=== PATIENT | male | born 1950 | race Caucasian/White ===

== ENCOUNTER 2020-05-27 09:06 | Outpatient (CLI) | payer MEDICARE, SELFPAY ==
--- NOTE | ~2020-05-27 | MR_ITS ---
EXAMINATION: MR shoulder RT wo con DATE: 05/27/2020 10:06 INDICATION: Dysfunction of right rotator cuff. TECHNIQUE: Magnetic resonance imaging (MRI) of the right shoulder was performed without intravenous c ontrast. Sequences included axial PD-weighted FS FSE, coronal oblique PD-weighted FS FSE and T2-weigh west FS FSE, and sagittal oblique T2-weighted FS FSE and T1-weighted FSE. COMPARISON: Right shoulder radiographs 03/29/2010 FINDINGS: Coracoacromial arch: The acromion undersurface is curved in morphology (type II). There is severe acromioclavicular joint osteoarthritis including inferiorly directed osteophytes. There is mild subacromial/subdeltoid bursit is. Rotator cuff: There is severe supraspinatus and infraspinatus tendinopathy. There is an articular sided tear of the junction of supraspinatus and infraspinatus tendons measuring 5 mm anterior to posterior by 1.6 cm p roximal to distal by up to 80% tendon thickness. Teres minor tendon is normal. There is moderate scap ularis tendinopathy. There is an interstitial tear of superior subscapularis tendon. There is no asym metric fatty atrophy of the rotator cuff muscle bellies. Biceps tendon and glenoid labrum: Biceps tendon is in bicipital groove. There is a partial tear of proximal biceps tendon. Fluid: There is a small glenohumeral joint effusion. Bones/cartilage: There is full-thickness cartilage loss of glenoid superiorly. There is full-thickness cartilage loss of humeral head superiorly. IMPRESSION: 1. Severe rotator cuff tendinopathy with partial-thickness tears involving supraspinatus, infraspinat us, and subscapularis tendons. 2. Severe glenohumeral joint chondrosis. 3. Severe acromioclavicular joint osteoarthritis. 4. Partial tear of proximal biceps tendon. 5. Mild subacromial/subdeltoid bursitis. 6. Small glenohumeral joint effusion. Reviewed, dictated and finalized at location A. IMPRESSION: 1. Severe rotator cuff tendinopathy with partial-thickness tears involving supr aspinatus, infraspinatus, and subscapularis tendons. 2. Severe glenohumeral joint chondrosis. 3. Severe acromioclavicular joint osteoarthritis. 4. Partial tear of proximal biceps tendon. 5. Mild subacromial/subdeltoid bursitis. 6. Small glenohumeral joint effusion.
== END 2020-05-27 09:07 | disposition home or self-care (01) ==
DX: M19.011 Primary osteoarthritis, right shoulder (principal); M75.51 Bursitis of right shoulder; M25.411 Effusion, right shoulder
CPT/HCPCS: 73221

== ENCOUNTER 2024-04-29 00:48 | Day surgery (SDC) | payer MEDICARE, OTHER, SELFPAY ==
[2024-04-21 10:25] VITALS: BMI 27.2
--- OUTSIDE RECORDS SUMMARY | 2024-04-29 00:51 | XMS_ITS | Referral Summary ---
Author Organization [facility] Address [address] [place] [address] Care Team Providers Care Railway Equipment Operator Name Role Phone Prince Bailon MD Primary Care Provider [phone] Encounters Date Type Department Care Team Description 04/22/[address] [facility] [address] [place] [address] Medical Office Building [address] [place] [address] Mariel Grove NP 04/21/2024 Orders Only [facility] at the [address] [place] [phone] Prince Bailon MD Obstructive sleep apnea syndrome 03/24/2024 Orders Only [facility] [address] [place] [address] Mariel Grove NP 03/23/2024 10:40 AM DEBATE DIRECTOR Office Visit 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 (Primary Dx); Primary stress urinary incontinence; Prostate cancer (HCC) 03/22/2024 9:25 AM DEBATE DIRECTOR - 03/22/2024 11:59 PM DEBATE DIRECTOR Hospital Encounter [facility] [address] [place] [address] Left sided sciatica Discharge Disposition: Discharge to home or self care 03/16/2024 Orders Only [facility] [address] [place] [address] Mariel Grove NP Benign prostatic hyperplasia with urinary obstruction (Primary Dx) 03/16/2024 9:45 AM DEBATE DIRECTOR Office Visit [facility] at the [address] [phone] Prince Bailon MD Left sided sciatica (Primary Dx); Essential hypertension; Benign prostatic hyperplasia with urinary obstruction; Pure hypercholesterolemia ; Personal history of prostate cancer 02/27/2024 Nurse Triage [facility] at the [address] [phone] Prince Bailon MD 02/22/2024 3:45 PM DEBATE DIRECTOR Telemedicine [facility] [address] [phone] Arelis Garrett NP COVID-19 (Primary Dx) 02/22/2024 Nurse Triage [facility] at the [address] [phone] Prince Bailon MD 02/09/[address] [facility] [address] [facility] Medical Office Building [address] [place] [address] Cuco Philip MD Prostate cancer (HCC) (Primary Dx) from Last 3 Months Allergies Active Allergy Reactions Criticality Noted Date Comments Lisinopril Cough Low 03/17/2018 Medications multivitamin tablet tablet take 1 tablet by oral route every day with food 0 0 014 Active Additional Information Patient taking differently: 1 tablet oral Every morning, Indications: Vitamin Deficiency Prevention, Reported on 03/23/2024 cetirizine (ZyrTEC) 10 mg tabletIndicati ons:Perennial Allergic Rhinitis Take 1 tablet (10 mg total) by mouth every morning Active acetaminophen (TYLENOL) 500 mg tablet Take 1 tablet (500 mg total) by mouth every 6 (six) hours as needed for pain Active pantoprazole DR (PROTONIX) 40 mg EC tablet TAKE 1 TABLET(40 MG) BY MOUTH DAILY 90 tablet 1 023 Active atorvastatin (LIPITOR) 10 mg tablet TAKE 1 TABLET(10 MG) BY MOUTH DAILY FOR HIGH CHOLESTEROL 90 tablet 3 024 Active carvediloL (COREG) 12.5 mg tablet TAKE 1 TABLET(12.5 MG) BY MOUTH TWICE DAILY 180 tablet 3 024 Active clonazePAM (KlonoPIN) 0.5 mg tablet Take 1 tablet (0.5 mg total) by mouth 2 (two) times a day as needed for anxiety 60 tablet 5 024 Active cyclobenzaprin e (FLEXERIL) 5 mg tablet Take 1 tablet (5 mg total) by mouth 2 (two) times a day as needed for muscle spasms 30 tablet 024 Active amLODIPine (NORVASC) 5 mg tablet TAKE 1 TABLET(5 MG) BY MOUTH DAILY 90 tablet 3 024 Active valACYclovir (VALTREX) 1 gram tablet TAKE 1 TABLET(1000 MG) BY MOUTH THREE TIMES DAILY 15 tablet 2 025 Active losartan (COZAAR) 100 mg tablet TAKE 1 TABLET(100 MG) BY MOUTH DAILY 90 tablet 3 025 Active meloxicam (MOBIC) 15 mg tablet TAKE 1 TABLET(15 MG) BY MOUTH DAILY NEEDED FOR PAIN 90 tablet 1 025 Active trospium XR (SANCTURA XR) 60 mg capsule,extend ed release 24hr Take 1 capsule (60 mg total) by mouth daily 30 capsule 025 2025 Active temazepam (RESTORIL) 15 mg capsuleIndicat ions:Obstructi ve sleep apnea syndrome Take 1 capsule (15 mg total) by mouth nightly as needed for sleep 90 capsule 025 Active papaverine-phe ntolamine-alpr ostadil (TRIMIX) solution injectionIndic ations:Erectil e Dysfunction 0.15 mL by intracavernosal route as needed (Use as directed for sexual activity.) 5 mL 5 025 Active tadalafiL (CIALIS) 20 mg tablet Take 1 tablet (20 mg total) by mouth daily as needed for erectile dysfunction 10 tablet 11 021 2020 Discontinued temazepam (RESTORIL) 15 mg capsuleIndicat ions:Obstructi ve sleep apnea syndrome TAKE 1 CAPSULE BY MOUTH NIGHTLY NEEDED FOR SLEEP. 90 capsule 1 024 2024 Discontinued(R eorder) papaverine-phe ntolamine-alpr ostadil (TRIMIX) solution injectionIndic ations:Erectil e Dysfunction 0.15 mL by intracavernosal route as needed (Use as directed for sexual activity.) 5 mL 5 024 2024 Discontinued(R eorder) Active Problems Problem Noted Date Diagnosed Date Primary stress urinary incontinence 03/31/2023 Pleurisy 10/01/2022 Assessment & Plan (10/01/2022 12:42 PM CDT): Recurrent left lower chest wall/abdominal pain for the past 6-12 months. Evaluation included a chest x-ray, chest CT scan as well as a stress echo which were all normal. Coronary artery calcification seen on CT scan Assessment & Plan (10/15/2023 9:25 PM CDT): Managed with BP and lipid control. Assessment & Plan (04/08/2023 9:29 AM DEBATE DIRECTOR): Continue with aspirin and carvedilol. Assessment & Plan (10/01/2022 12:40 PM CDT): Continue with carvedilol. Assessment & Plan (05/23/2022 4:58 PM CDT): Incidental finding on chest CT scan. Managed with BP and lipid control. Pure hypercholesterolemia 05/23/2022 Assessment & Plan (03/16/2024 8:41 PM DEBATE DIRECTOR): Target LDL less than 100. Continue current diet and atorvastatin Assessment & Plan (10/15/2023 9:25 PM CDT): Target LDL less than 70. Continue current diet and atorvastatin. Check CMP and FLP. Assessment & Plan (08/09/2023 4:22 PM CDT): Target LDL less than 100. Continue current diet and atorvastatin. Assessment & Plan (04/08/2023 9:29 AM DEBATE DIRECTOR): Target LDL less than 70. Continue current diet and atorvastatin. Assessment & Plan (11/20/2022 10:23 AM CDT): Target LDL less than 100. Continue current diet and atorvastatin. Assessment & Plan (10/01/2022 12:40 PM CDT): Target LDL less than 70 due to calcification on CT scan of coronary arteries. Continue current diet and atorvastatin. Check CMP and FLP. Assessment & Plan (05/23/2022 4:58 PM CDT): Target LDL less than 70. New diagnosis since coronary calcifications on CT scan. Now on atorvastatin. Gastroesophageal reflux disease 05/23/2022 Assessment & Plan (10/01/2022 12:39 PM CDT): Continue pantoprazole. Dysfunction of right rotator cuff 12/14/2020 Nontraumatic incomplete tear of right rotator cu ff 12/14/2020 Personal history of prostate cancer 11/30/2019 Overview (11/30/2019): Added automatically from request for surgery [id number] Assessment & Plan (03/16/2024 8:41 PM DEBATE DIRECTOR): Prostatectomy in 2019. Followed by serial PSAs. Assessment & Plan (04/08/2023 9:30 AM DEBATE DIRECTOR): Prostatectomy in 2019. Followed by serial PSAs. Assessment & Plan (10/01/2022 12:40 PM CDT): Status post surgical resection. Continue follow-up with urology. Assessment & Plan (04/03/2022 5:51 PM DEBATE DIRECTOR): Status post prostatectomy in 2019 Assessment & Plan (09/18/2021 1:45 PM CDT): Followed by urology. Chronic insomnia 03/10/2017 Assessment & Plan (10/01/2022 12:40 PM CDT): On chronic temazepam. Keratosis, senilis 06/25/2016 Male erectile disorder 09/05/2015 Overview (05/30/2016): Impotence Lentigines 06/20/2015 Basal cell carcinoma (BCC) of back 10/19/2014 Anxiety 09/16/2013 Primary insomnia 09/16/2013 Assessment & Plan (10/15/2023 9:26 PM CDT): Managed with chronic temazepam. Assessment & Plan (08/09/2023 4:22 PM CDT): Continue with temazepam. Assessment & Plan (04/08/2023 9:31 AM DEBATE DIRECTOR): Treated with temazepam for years. Assessment & Plan (04/03/2022 5:51 PM DEBATE DIRECTOR): Has been on chronic temazepam for several years. Assessment & Plan (09/18/2021 1:45 PM CDT): On chronic temazepam. Atopic rhinitis 08/09/2013 Overview (05/30/2016): Allergic rhinitis Left ventricular hypertrophy 08/09/2013 Overview (05/30/2016): LVH - Left ventricular hypertrophy Essential hypertension 08/09/2013 Overview (05/30/2016): Essential hypertension Assessment & Plan (03/16/2024 8:40 PM DEBATE DIRECTOR): Target BP less than 130/80. Continue current diet, amlodipine, losartan and carvedilol. Assessment & Plan (10/15/2023 9:25 PM CDT): Target BP less than 130/80. Continue current diet, amlodipine, losartan and carvedilol. Check CBC and CMP. Assessment & Plan (08/09/2023 4:21 PM CDT): Target BP less than 130/80. Continue current diet, amlodipine, carvedilol and losartan. Assessment & Plan (04/08/2023 9:30 AM DEBATE DIRECTOR): Target BP less than 130/80. Continue current diet, amlodipine, carvedilol and losartan. Ambulatory BP machine correlating well with in office sphygmomanometer. Assessment & Plan (01/09/2023 12:30 PM DEBATE DIRECTOR): Uncontrolled hypertension. Asked patient to continue ambulatory monitoring report readings in 2-3 weeks. Target BP less than 140/90. Assessment & Plan (11/20/2022 10:24 AM CDT): Target BP less than 130/80. Continue current diet, carvedilol and losartan. Assessment & Plan (10/01/2022 12:41 PM CDT): BP uncontrolled. Increase carvedilol from 6.25 mg until 0.5 mg b.i.d.. RTC in 6 months. Target BP less than 130/80. Check CBC and CMP. Assessment & Plan (05/23/2022 4:59 PM CDT): Target BP less than 130/80. Continue current carvedilol and losartan. Assessment & Plan (05/16/2022 9:56 AM CDT): BP uncontrolled. Carvedilol started just 1 week ago. Continue with current diet, carvedilol and losartan. Keep follow-up appointment next week. Assessment & Plan (05/12/2022 9:28 AM CDT): BP uncontrolled. Systolic BP greater than 140. Add carvedilol to current diet and losartan. RTC in 2 weeks to re-evaluate BP Assessment & Plan (04/03/2022 5:50 PM DEBATE DIRECTOR): Target BP less than 130/80. Continue current diet and losartan. Assessment & Plan (11/27/2021 12:12 PM CDT): Target BP <140/90. Continue current diet and losartan Assessment & Plan (09/18/2021 1:44 PM CDT): Systolic BP uncontrolled. Target BP less than 140/90. Increase losartan from 50 mg daily to 100 mg daily. RTC in 2-3 months to re-evaluate BP. Check CBC, CMP and FLP. Benign prostatic hyperplasia with urinary obstru ction 08/09/2013 Overview (05/30/2016): BPH w/ outflow obstruction Assessment & Plan (03/16/2024 8:41 PM DEBATE DIRECTOR): Managing without medications. Assessment & Plan (04/08/2023 9:30 AM DEBATE DIRECTOR): Managing without medications. Assessment & Plan (09/18/2021 1:45 PM CDT): Managed by urology. History of nonmelanoma skin cancer 06/01/2013 Obstructive sleep apnea syndrome 01/20/2013 Assessment & Plan (10/15/2023 9:25 PM CDT): Continue CPAP; using nightly benefit. Assessment & Plan (04/08/2023 9:30 AM DEBATE DIRECTOR): Using CPAP nightly with benefit. Assessment & Plan (10/01/2022 12:41 PM CDT): Using CPAP nightly with benefit. Assessment & Plan (09/18/2021 1:44 PM CDT): Using CPAP nightly with benefit. Heart murmur 01/20/2013 Resolved Problems Problem Noted Date Diagnosed Date Resolved Date Benign hypertension 03/29/2015 09/06/19 17 Overview (05/30/2016): Benign hypertension Skin neoplasm 10/21/2014 10/10/2017 Hypertension 09/16/2013 10/10/2017 Shortness of breath 01/20/2013 10/11/19 18 Immunizations Immunization Administration Dates Next Due COVID-19 MRNA (MODERNA) .5 M L (50 MCG) VACCINE (12 YEARS AND UP) 12/16/2023 Influenza, Quadrivalent, Hig h Dose, Preservative Free, Intrr 11/20/2022,11/27/2021,11/22/2020,11/25 Influenza, Trivalent, High D ose, Split, Preservative Free, Intramuscular 12/16/2023,12/01/2018,11/12/2017,12/08,01/01/2016 Influenza, Trivalent, IM (MDV) 11/24/2013,2012 Influenza, Unspecified 12/09/2016 Moderna SARS-CoV-2 Monovalen t Vaccination (12+ YRS) 05/22/2020,05/02/2020,2020 Pneumococcal Conjugate PCV 13 09/05/2015 Pneumococcal Polysaccharide PPV23 03/10/2017 RSV Vaccine, Pref, Recombina nt, Subunit, Adjuvanted, PF, IM (Arexvy) 02/04/2023 Sars-cov-2 Covid-19 Mrna, Bi valent, Original/unrulyron Ba.1, A 02/04/2023 Tdap 06/06/2022 ZOSTER LIVE 08/24/2013,11/09/2012 ZOSTER Recombinant 06/06/2022,03/12/2022 Social History Tobacco Use Types Packs/Day Years Used Date Smoking Tobacco: Never Smokeless Tobacco: Former Chew Quit: 12/15/2009 Tobacco Cessation:Counseling Given: Not Answered Alcohol Use Standard Drinks/Week Comments Yes 6 (1 standard drink = 0.6 oz pur e alcohol) AUDIT-C Answer Date Recorded Q1: How often do you have a drink containing alc ohol? 2-3 times a week 10/01/2022 Q2: How many drinks containi ng alcohol do you have on a typical day when you are drinking? 3 or 4 10/01/2022 Q3: How often do you have si x or more drinks on one occasion? Never 10/01/2022 PHQ-2 Answer Date Recorded PHQ-2 Total Score (If total score is 3 or more points, staff should administer the PHQ-9) 0 10/08/2023 Personal Safety Answer Date Recorded Have you ever been in or are you currently in a harmful physical or emotional relationship or is someone making you feel afraid or unsafe? Denies 11/15/2022 Sex and Gender Information Value Date Recorded Sex Assigned at Not on file Legal Sex Male 10:54 AM DEBATE DIRECTOR Gender Identity Male 01/03/2021 9:26 PM DEBATE DIRECTOR Sexual Orientation Straight 02/29/2020 10 :43 AM DEBATE DIRECTOR Occupation Industry Job Start Date Job End Date Retired Not on file Not on file Not on file Last Filed Vital Signs Vital Sign Reading Time Taken Comments Blood Pressure 134/62 03/16/2024 9:42 AM DEBATE DIRECTOR Pulse 76 10/15/2023 8:39 AM CDT Temperature 37.3 C (99.1 F) 11/15/2022 3:58 PM CDT Respiratory Rate 18 08/08/2023 8:31 AM CDT Oxygen Saturation 98% 10/15/2023 8:39 AM CDT Inhaled Oxygen Concentration - - Weight 81.6 kg (180 lb) 03/16/2024 9:42 AM DEBATE DIRECTOR Height 170.2 cm (5' 7 ) 03/16/2024 9:42 AM DEBATE DIRECTOR Body Mass Index 28.19 03/16/2024 9:42 AM DEBATE DIRECTOR Plan of Treatment Not on file Procedures Procedure Name Priority Date/Time Associated Diagnosis Comments MRI LUMBAR SPINE WO CONTRAST Schedule Routine, Read Routine (OP Routine) 03/22/2024 10:20 AM DEBATE DIRECTOR Left sided sciatica PSA SCREEN Routine 02/06/2024 8:55 AM DEBATE DIRECTOR Prostate cancer (HCC) COLONOSCOPY Routine 03/04/2017 from Last 3 Months or Most Recently Relevant to Health Maintenance Results * MRI Lumbar Spine WO Contrast (03/22/2024 10:20 AM DEBATE DIRECTOR) Anatomical Region Laterality Modality Spine N/A Magnetic Resonan ce 03/22/2024 10:4 6 AM DEBATE DIRECTOR Impressions 03/22/2024 10:46 AM DEBATE DIRECTOR Lumbar degenerative disc and joint disease as described above. Electronically signed by: Kyle Canas MD Narrative 03/22/2024 10:46 AM DEBATE DIRECTOR EXAMINATION: Magnetic resonance imaging (MRI) of the lumbar spine without contrast HISTORY: Low back pain, symptoms persist with > 6 wks treatment Lumbar radiculopathy, symptoms persist with > 6 wks treatment. TECHNIQUE: Multiplanar multi-weighted MRI of the lumbar spine was performed without intravenous contrast using the standard lumbar spine protocol. COMPARISON: 08/19/2023, 12/01/2020 FINDINGS: Trace L1-L2 and L2-L3 retrolistheses and grade 1 L4-L5 anterolisthesis. Mild lumbar levoscoliosis with apex at approximately L2-L3. No aggressive marrow replacing osseous lesions or processes are visualized. Vertebral body hemangiomas of varying size are noted. No acute compression fractures. Chronic L1 superior endplate compression deformity. Multilevel degenerative disc disease. The conus medullaris terminates at the level of L1-L2. The distal spinal cord signal intensity is normal. Limited views of the abdomen and pelvis show no soft tissue abnormality. L1-2: Mild disc bulge. Ligamentum flavum infolding. There is moderate facet arthropathy. There is mild neuroforaminal stenosis. There is no spinal canal stenosis. L2-3: Posterior disc-osteophyte complex. Ligamentum flavum infolding. There is moderate facet arthropathy. There is moderate right neuroforaminal stenosis. There is no spinal canal stenosis. Right lateral recess stenosis. L3-4: Mild disc bulge. Ligamentum flavum infolding. There is moderate facet arthropathy. There is moderate neuroforaminal stenosis. There is mild spinal canal stenosis. L4-5: Anterolisthesis with partial disc uncovering. Ligamentum flavum infolding. There is severe facet arthropathy. There is moderate neuroforaminal stenosis. There is moderate spinal canal stenosis. Bilateral recess stenoses. L5-S1: Mild disc bulge. No significant ligamentum flavum infolding. There is severe facet arthropathy. There is moderate neuroforaminal stenosis. There is no spinal canal stenosis. Procedure Note Kyle Canas MD - 03/22/2024 EXAMINATION: Magnetic resonance imaging (MRI) of the lumbar spine without contrast HISTORY: Low back pain, symptoms persist with > 6 wks treatment Lumbar radiculopathy, symptoms persist with > 6 wks treatment. TECHNIQUE: Multiplanar multi-weighted MRI of the lumbar spine was performed without intravenous contrast using the standard lumbar spine protocol. COMPARISON: 08/19/2023, 12/01/2020 FINDINGS: Trace L1-L2 and L2-L3 retrolistheses and grade 1 L4-L5 anterolisthesis. Mild lumbar levoscoliosis with apex at approximately L2-L3. No aggressive marrow replacing osseous lesions or processes are visualized. Vertebral body hemangiomas of varying size are noted. No acute compression fractures. Chronic L1 superior endplate compression deformity. Multilevel degenerative disc disease. The conus medullaris terminates at the level of L1-L2. The distal spinal cord signal intensity is normal. Limited views of the abdomen and pelvis show no soft tissue abnormality. L1-2: Mild disc bulge. Ligamentum flavum infolding. There is moderate facet arthropathy. There is mild neuroforaminal stenosis. There is no spinal canal stenosis. L2-3: Posterior disc-osteophyte complex. Ligamentum flavum infolding. There is moderate facet arthropathy. There is moderate right neuroforaminal stenosis. There is no spinal canal stenosis. Right lateral recess stenosis. L3-4: Mild disc bulge. Ligamentum flavum infolding. There is moderate facet arthropathy. There is moderate neuroforaminal stenosis. There is mild spinal canal stenosis. L4-5: Anterolisthesis with partial disc uncovering. Ligamentum flavum infolding. There is severe facet arthropathy. There is moderate neuroforaminal stenosis. There is moderate spinal canal stenosis. Bilateral recess stenoses. L5-S1: Mild disc bulge. No significant ligamentum flavum infolding. There is severe facet arthropathy. There is moderate neuroforaminal stenosis. There is no spinal canal stenosis. IMPRESSION: Lumbar degenerative disc and joint disease as described above. Electronically signed by: Kyle Canas MD Prince Bailon MD IMG MRI PROCEDURES Final Resu lt * PSA screen (02/06/2024 8:55 AM DEBATE DIRECTOR) PSA 0.04 < OR = 4.00 ng/mL [facility] Comment: The total PSA value from this assay system is standardized against the WHO standard. The test result will be approximately 20% lower when compared to the equimolar-standardized total PSA (Ethan Cord). Comparison of serial PSA results should be interpreted with this fact in mind. This test was performed using the Siemens chemiluminescent method. Values obtained from different assay methods cannot be used interchangeably. PSA levels, regardless of value, should not be interpreted as absolute evidence of the presence or absence of disease. Blood 02/06/2024 8:55 AM DEBATE DIRECTOR 02/06/2024 8:55 AM DEBATE DIRECTOR Cuco Philip MD LAB BLOOD ORDERABLES Rakle barclay Result [facility] [address] [place] [address] * Colonoscopy (03/04/2017) Anatomical Region Laterality Modality Other Prince Bailon MD ENDOSCOPY PROCEDURES Final Re sult from Last 3 Months or Most Recently Relevant to Health Maintenance Insurance MEDICARE [facility] [address] [place] [id number] MEDICARE [facility] [address] [id number] MEDICARE [facility] Advance Directives For more information, please contact: [phone] Documents on File Type Date Recorded 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
--- OUTSIDE RECORDS SUMMARY | 2024-04-29 00:51 | XMS_ITS | Clinical Summary ---
Author Organization [facility] Address [address] [address] [place] [address] Phone Care Team Providers Care Computer Systems Architect Name Role Phone Unavailable Primary Care Provider Unavailabl e Medications polyethylene glycol (MIRALAX) Powder Use entire 255g bottle with 64oz of clear liquid as directed for colonoscopy prep. 255 g 7 Active Social History Tobacco Use Types Packs/Day Years Used Date Smoking Tobacco: Never Assessed Sex and Gender Information Value Date Recorded Sex Assigned at Not on file Legal Sex Male 11:38 PM CDT Gender Identity Not on file Sexual Orientation Not on file Plan of Treatment Health Maintenance Due Date Last Done Comments Hepatitis C Virus (HCV) Screening 1950 TdaP Immunization 1950 Cologuard 2000 Immunochemical Fecal Occult Blood 2000 Pneumococcal Immunization (5 0+ years) (1 of 1 - PCV) 2000 Zoster Immunization (1 of 2) 2000 Colonoscopy 10/11/2020 10/11/2010 Colorectal Cancer Screening 10/11/2020 Influenza Immunization (#1) 2023 SARS-COV-2 Immunization ( - 2023-25 season) 2023 Respiratory Syncytial Virus (RSV) Immunization (Adult) (1 - 1-dose 75+ series) 2025 10/11/2010 Hepatitis B Immunization Aged Out No longer eligible based on patient's age to complete this topic Meningococcal Immunization (ACWY) Aged Out No longer eligible based on patient's age to complete this topic Rotavirus Immunization Aged Out No lo nger eligible based on patient's age to complete this topic Procedures Procedure Name Priority Date/Time Associated Diagnosis Comments COLONOSCOPY Routine 10/11/2010 from Last 3 Months or Most Recently Relevant to Health Maintenance Results * COLONOSCOPY (10/11/2010) John Paul Herndon DO PROCEDURE/MINOR SURGICAL ORDERA BLES Final Result from Last 3 Months or Most Recently Relevant to Health Maintenance Insurance MEDICARE [facility]
--- OUTSIDE RECORDS SUMMARY | 2024-04-29 00:51 | XMS_ITS | Clinical Summary ---
Author Organization [facility] Address [address] [place] [address] Care Team Providers Care Sales Operations Lead Name Role Phone Prince Bailon MD Primary Care Provider [phone] Allergies Active Allergy Reactions Criticality Noted Date [...] as needed for anxiety 60 tablet 5 11/08/2 024 Active cyclobenzaprin e (FLEXERIL) 5 mg tablet Take 1 tablet (5 mg total) by mouth 2 (two) times a day as needed for muscle spasms 30 tablet Active amLODIPine (NORVASC) 5 mg tablet TAKE 1 TABLET(5 MG) BY MOUTH DAILY 90 tablet 3 Active valACYclovir (VALTREX) 1 gram tablet TAKE 1 TABLET(1000 MG) BY MOUTH THREE TIMES DAILY 15 tablet 2 Active losartan (COZAAR) 100 mg tablet TAKE 1 TABLET(100 MG) BY MOUTH DAILY 90 tablet 3 Active meloxicam (MOBIC) 15 mg tablet TAKE 1 TABLET(15 MG) BY MOUTH DAILY NEEDED FOR PAIN 90 tablet 1 Active trospium XR (SANCTURA XR) 60 mg capsule,extend ed release 24hr Take 1 capsule (60 mg total) by mouth daily 30 capsule 025 2025 Active temazepam (RESTORIL) 15 mg capsuleIndicat ions:Obstructi ve sleep apnea syndrome Take 1 capsule (15 mg total) by mouth nightly as needed for sleep 90 capsule 1 Active papaverine-phe ntolamine-alpr ostadil (TRIMIX) solution injectionIndic ations:Erectil e Dysfunction 0.15 mL by intracavernosal route as needed (Use as directed for sexual activity.) 5 mL 5 Active tadalafiL (CIALIS) 20 mg tablet Take [...] control. Assessment & Plan (04/08/2023 9:29 AM SMALL PARTS ASSEMBLER): Continue with aspirin and carvedilol. Assessment & Plan (10/01/2022 12:40 PM CDT): Continue with carvedilol. Assessment & Plan (05/23/2022 4:58 PM CDT): Incidental finding on chest CT scan. Managed with BP and lipid control. Pure hypercholesterolemia 05/23/2022 Assessment & Plan (03/16/2024 8:41 PM SMALL PARTS ASSEMBLER): Target LDL less than 100. Continue current diet and atorvastatin Assessment & Plan (10/15/2023 9:25 PM CDT): Target LDL less than 70. Continue current diet and atorvastatin. Check CMP and FLP. Assessment & Plan (08/09/2023 4:22 PM CDT): Target LDL less than 100. Continue current diet and atorvastatin. Assessment & Plan (04/08/2023 9:29 AM SMALL PARTS ASSEMBLER): Target LDL less than 70. Continue current [...] (11/30/2019): Added automatically from request for surgery [id number] Assessment & Plan (03/16/2024 8:41 PM SMALL PARTS ASSEMBLER): Prostatectomy in 2019. Followed by serial PSAs. Assessment & Plan (04/08/2023 9:30 AM SMALL PARTS ASSEMBLER): Prostatectomy in 2019. Followed by serial PSAs. Assessment & Plan (10/01/2022 12:40 PM CDT): Status post surgical resection. Continue follow-up with urology. Assessment & Plan (04/03/2022 5:51 PM SMALL PARTS ASSEMBLER): Status post prostatectomy in 2019 Assessment & [...] temazepam. Assessment & Plan (04/08/2023 9:31 AM SMALL PARTS ASSEMBLER): Treated with temazepam for years. Assessment & Plan (04/03/2022 5:51 PM SMALL PARTS ASSEMBLER): Has been on chronic temazepam for several years. Assessment & Plan (09/18/2021 1:45 PM CDT): On chronic temazepam. Atopic rhinitis 08/09/2013 Overview (05/30/2016): Allergic rhinitis Left ventricular hypertrophy 08/09/2013 Overview (05/30/2016): LVH - Left ventricular hypertrophy Essential hypertension 08/09/2013 Overview (05/30/2016): Essential hypertension Assessment & Plan (03/16/2024 8:40 PM SMALL PARTS ASSEMBLER): Target BP less than 130/80. Continue current diet, amlodipine, losartan and carvedilol. Assessment & Plan (10/15/2023 9:25 PM CDT): Target BP less than 130/80. Continue current diet, amlodipine, losartan and carvedilol. Check CBC and CMP. Assessment & Plan (08/09/2023 4:21 PM CDT): Target BP less than 130/80. Continue current diet, amlodipine, carvedilol and losartan. Assessment & Plan (04/08/2023 9:30 AM SMALL PARTS ASSEMBLER): Target BP less than 130/80. Continue current diet, amlodipine, carvedilol and losartan. Ambulatory BP machine correlating well with in office sphygmomanometer. Assessment & Plan (01/09/2023 12:30 PM SMALL PARTS ASSEMBLER): Uncontrolled hypertension. Asked patient to continue ambulatory [...] BP Assessment & Plan (04/03/2022 5:50 PM SMALL PARTS ASSEMBLER): Target BP less than 130/80. Continue current [...] obstruction Assessment & Plan (03/16/2024 8:41 PM SMALL PARTS ASSEMBLER): Managing without medications. Assessment & Plan (04/08/2023 9:30 AM SMALL PARTS ASSEMBLER): Managing without medications. Assessment & Plan (09/18/2021 1:45 PM CDT): Managed by urology. History of nonmelanoma skin cancer 06/01/2013 Obstructive sleep apnea syndrome 01/20/2013 Assessment & Plan (10/15/2023 9:25 PM CDT): Continue CPAP; using nightly benefit. Assessment & Plan (04/08/2023 9:30 AM SMALL PARTS ASSEMBLER): Using CPAP nightly with benefit. Assessment & Plan (10/01/2022 12:41 PM CDT): Using CPAP nightly with benefit. Assessment & Plan (09/18/2021 1:44 PM CDT): Using CPAP nightly with benefit. Heart murmur 01/20/2013 Resolved Problems Problem Noted Date Diagnosed Date Resolved Date Benign hypertension 03/29/2015 09/06/19 17 Overview (05/30/2016): Benign hypertension Skin neoplasm 10/21/2014 10/10/2017 Hypertension 09/16/2013 10/10/2017 Shortness of breath 01/20/2013 10/11/19 18 Encounters Date Type Department Care Team Description 04/22/2024 Orders Only [facility] Urology [address] [facility] [address] [place] [address] Mariel Grove NP 04/21/2024 Orders Only [facility] at the [address] [place] [address] Prince Bailon MD Obstructive sleep apnea syndrome 03/24/2024 Orders Only [facility] [address] [place] [address] Mariel Grove NP 03/23/2024 10:40 AM SMALL PARTS ASSEMBLER Office Visit [facility] Urology [address] [facility] [address] [place] [address] Mariel Grove NP Erectile dysfunction after radical prostatectomy (Primary Dx); Primary stress urinary incontinence; Prostate cancer (HCC) 03/22/2024 9:25 AM SMALL PARTS ASSEMBLER - 03/22/2024 11:59 PM SMALL PARTS ASSEMBLER Hospital Encounter [facility] Imaging [address] [place] [address] Left sided sciatica Discharge Disposition: Discharge to home or self care 03/16/2024 9:45 AM SMALL PARTS ASSEMBLER Office Visit [facility] at the [address] [address] Prince Bailon MD Left sided sciatica (Primary Dx); Essential hypertension; Benign prostatic hyperplasia with urinary obstruction; Pure hypercholesterolemia ; Personal history of prostate cancer 03/16/2024 Orders Only [facility] [address] [place] [address] Mariel Grove NP Benign prostatic hyperplasia with urinary obstruction (Primary Dx) 02/27/2024 Nurse Triage [facility] at the [address] [address] Prince Bailon MD 02/22/2024 3:45 PM SMALL PARTS ASSEMBLER Telemedicine [facility] [address] [address] Arelis Garrett NP COVID-19 (Primary Dx) 02/22/2024 Nurse Triage [facility] at the [address] [phone] Prince Bailon MD 02/09/2024 Orders Only [facility] Urology [address] [facility] [address] [place] [address] Cuco Philip MD Prostate cancer (HCC) (Primary Dx) from Last 3 Months Immunizations Immunization Administration Dates Next Due COVID-19 [...] (Arexvy) 02/04/2023 Sars-cov-2 Covid-19 Mrna, Bi valent, Original/omicron Ba.1, A 02/04/2023 Tdap 06/06/2022 ZOSTER LIVE 08/24/2013,11/09/2012 ZOSTER Recombinant 06/06/2022,03/12/2022 Surgical History Surgery Date Site/Laterality Comments OTHER SURGICAL HISTORY R forearm skin cancer: s/p excision CYST REMOVAL 02/24/1979 - 02/24/1980 Left left wrist COLONOSCOPY 02/25/2016 - 02/23/2017 RADICAL PROSTATECTOMY 12/20/2019 FL UPPER GI AIR CONTRAST W KUB 12/12/2020 Left FL UPPER GI AIR CONTRAST W KUB 01/05/2021 Left FL UPPER GI AIR CONTRAST W KUB 07/13/2021 Left Medical History Medical History Date Comments Hx Other Medical R forearm skin cancer Hypertension Urinary incontinence Sleep apnea Basal cell carcinoma of skin of other part of trunk Basal cell carcinoma of back - (Added by TW Conv) Arthritis Family History Medical History Relation Name Comments Other Brother 3 Alive and well; Coronary artery disease Brother 4 Debi nary artery disease; Diabetes Father Emphysema Father Emphysema; Heart disease Father Other Father Unknown; Cause of : Unknown Breast cancer Mother Cancer, breast ; Cause of : Cancer, breast Anesthesia problems Neg Hx Relation Name Status Comments Brother 1 Alive Brother 2 Alive Brother 3 Brother 4 Father Mother Social History Tobacco Use Types Packs/Day Years [...] on file Legal Sex Male 10:54 AM SMALL PARTS ASSEMBLER Gender Identity Male 01/03/2021 9:26 PM SMALL PARTS ASSEMBLER Sexual Orientation Straight 02/29/2020 10 :43 AM SMALL PARTS ASSEMBLER Occupation Industry Job Start Date Job End Date Retired Not on file Not on file Not on file Obstetrics History Last Filed Vital Signs Vital Sign Reading Time Taken Comments Blood Pressure 134/62 03/16/2024 9:42 AM SMALL PARTS ASSEMBLER Pulse 76 10/15/2023 8:39 AM CDT Temperature 37.3 C (99.1 F) 11/15/2022 3:58 PM CDT Respiratory Rate 18 08/08/2023 8:31 AM CDT Oxygen Saturation 98% 10/15/2023 8:39 AM CDT Inhaled Oxygen Concentration - - Weight 81.6 kg (180 lb) 03/16/2024 9:42 AM SMALL PARTS ASSEMBLER Height 170.2 cm (5' 7 ) 03/16/2024 9:42 AM SMALL PARTS ASSEMBLER Body Mass Index 28.19 03/16/2024 9:42 AM SMALL PARTS ASSEMBLER Plan of Treatment Health Maintenance Due Date Last Done Comments Hepatitis C Screening 1950 Hepatitis B Screening 1968 Abdominal Aortic Aneurysm (A AA) Screen 04/25/2015 Covid-19 Vaccine (2023-2 5 season) 2024 12/16/2023, 02/04/2023, 02/04/2023, Additional history exists Depression Screening 10/14/2024 10/15/2023, 10/01/2022, 04/03/2022, Additional history exists Fall Risk Assessment 10/14/2024 10/15/2023, 10/01/2022, 04/03/2022, Additional history exists Well Visit 65+ 10/14/2024 10/15/2023, 0809/2022, 09/18/2021, Additional history exists Colon Cancer Screening-Colonoscopy 03/04/2027 03/04/2017 DTaP/Tdap/Td Vaccine (2 - Td or Tdap) 06/06/2032 06/06/2022 Colon Cancer Screening-CT Colonography Discontinued 03/04/2017 Colon Cancer Screening-DNA Stool Discontinued 03/04/19 Colon Cancer Screening-FIT Discontinued 03/04/2017 Colon Cancer Screening-Sigmoidoscopy Discontinued 03/04/2017 Pneumococcal vaccine 65+ Completed 03/10/2017, 08/24 Zoster Vaccine Completed 06/06/2022, 02/24, 08/24/2013, Additional history exists Influenza Vaccine Completed 12/16/2023, , 11/27/2021, Additional history exists Prostate Cancer Screening-PSA Discontinued , 08/13/2023, 02/11/2023, Additional history exists Procedures Procedure Name Priority Date/Time Associated Diagnosis Comments MRI LUMBAR SPINE WO CONTRAST Schedule Routine, Read Routine (OP Routine) 03/22/2024 10:20 AM SMALL PARTS ASSEMBLER Left sided sciatica PSA SCREEN Routine 02/06/2024 8:55 AM SMALL PARTS ASSEMBLER Prostate cancer (HCC) COLONOSCOPY Routine 03/04/2017 from Last 3 Months or Most Recently Relevant to Health Maintenance Results * MRI Lumbar Spine WO Contrast (03/22/2024 10:20 AM SMALL PARTS ASSEMBLER) Anatomical Region Laterality Modality Spine N/A Magnetic Resonan ce 03/22/2024 10:4 6 AM SMALL PARTS ASSEMBLER Impressions 03/22/2024 10:46 AM SMALL PARTS ASSEMBLER Lumbar degenerative disc and joint disease as described above. Electronically signed by: MD Rudy Hunter 03/22/2024 10:46 AM SMALL PARTS ASSEMBLER EXAMINATION: Magnetic resonance imaging (MRI) of the [...] lt * PSA screen (02/06/2024 8:55 AM SMALL PARTS ASSEMBLER) PSA 0.04 < OR = 4.00 ng/mL [employer] [employer] [facility] Comment: The total PSA value from this assay system is standardized against the WHO standard. The test result will be approximately 20% lower when compared to the equimolar-standardized total PSA ([place] [place]). Comparison of serial PSA results should be interpreted with this fact in mind. This test was performed using the Siemens chemiluminescent method. Values obtained from different assay methods cannot be used interchangeably. PSA levels, regardless of value, should not be interpreted as absolute evidence of the presence or absence of disease. Blood 02/06/2024 8:55 AM SMALL PARTS ASSEMBLER 02/06/2024 8:55 AM SMALL PARTS ASSEMBLER Cuco Philip MD LAB BLOOD ORDERABLES Rakel barclay Result [facility] [address] [place] [address] * Colonoscopy (03/04/2017) Anatomical Region Laterality Modality Other Prince Bailon MD ENDOSCOPY PROCEDURES Final Re sult from Last 3 Months or Most Recently Relevant to Health Maintenance Insurance MEDICARE Member Subscriber Plan / Payer (Ef fective 2015-Present) Name:Darren Gaitan Member ID:[id number] Relation to Subscriber:Self Name:Darren Gaitan Subscriber ID:[id number] Payer ID:[id number] Group ID:Not on file Type:MEDICARE TRADITIONAL Address: [address] [place] [phone] [employer] [address] [place] [address] MEDICARE [place] [employer] [address] [place] [address] MEDICARE [facility] Advance Directives For more information, please contact: [phone] Documents on File Type Date Recorded Patient Assembler Lay Ups Expl anation ADVANCE DIRECTIVE 12/16/2019 1:21 PM Noreen Murphy * Full Code (Latest Code Status on File) Date Activated Date Inactivated Comments 12/20/2019 5:58 PM 12/21/2019 8:55 PM Care Teams Sales Operations Lead Relationship Specialty Start Date End Date Prince Bailon MD [address] [place] [address] [address] [address] PCP - General 05/24/16
--- OUTSIDE RECORDS SUMMARY | 2024-04-29 00:51 | XMS_ITS | Clinical Summary ---
Author Organization [address] [address] Care Team Providers Care Supervisor Print Line Name Role Phone Unavailable Primary Care Provider Unavailabl e Encounters Date Type Department Care Team Description 04/27/2024 4:15 PM LABORER [employer]YING [employer] Ancillary Procedure [address] [address] Velasquez Traylor MD Spondylolisthesis of lumbosacral region from Last 3 Months Social History Tobacco Use Types Packs/Day Years Used Date Smoking Tobacco: Never Assessed Sex and Gender Information Value Date Recorded Sex Assigned at Not on file Legal Sex Male 4:14 PM [employer]ER [employer] Gender Identity Not on file Sexual Orientation Not on file Plan of Treatment Health Maintenance Due Date Last Done Comments DTAP/TDAP/TD VACCINES (1 - Tdap) 1969 06/07/19 23 COLORECTAL SCREENING 04/25/1995 10/11/2010 Colorectal Cancer Screening 04/25/1995 FIT-DNA Q 3 years 04/25/1995 FIT/FOBT Q 1 year 04/25/1995 Flex Sig/CT Colonography Q 5 years 04/25/1995 PNEUMOCOCCAL VACCINE 50+ YEA RS (1 of 1 - PCV) 2000 03/10/2017, 09/05/2015 ZOSTER VACCINE (1 of 2) 2000 06/07/19 23, 03/12/2022, 08/24/2013, Additional history exists INFLUENZA VACCINE (#1) 2023 4, 11/20/2022, 11/27/2021, Additional history exists RSV VACCINE (60+ or ) (1 - 1-dose 75+ series) 2025 Procedures Procedure Name Priority Date/Time Associated Diagnosis Comments XR LUMBAR SPINE 4+ VW Routine 04/27/2024 4:33 PM [employer] [employer] Spondylolisthesis of lumbosacral region from Last 3 Months Results * XR LUMBAR SPINE 4+ VW (04/27/2024 4:33 PM LAB[facility]ER [facility] [employer]) Anatomical Region Laterality Modality Spine Computed Radiogr aphy 04/27/2024 4:33 PM LAB[facility]ER [facility] [employer] Impressions 04/28/2024 7:14 AM LAB[facility]ER [employer]YING DE[employer]MENT IMPRESSION: Multilevel degenerative changes of the lumbar spine. Narrative 04/28/2024 7:14 AM LAB[employer]ER [employer] EXAM: XR LUMBAR SPINE 4+ VW STUDY DATE: 04/27/2024 4:33 PM CLINICAL INDICATION: Spondylolisthesis of lumbosacral region COMPARISON: None PROCEDURE: AP, lateral flexion, lateral extension and lateral views of the lumbar spine with lateral coned-down view of lumbosacral junction are obtained. FINDINGS: There is left curvature of the lumbar spine, centered at L2-L3. There is osteopenia. There is 9 mm grade 1 anterolisthesis of L4 on L5 (which increases with flexion and does not change with extension) and 4 mm grade 1 anterolisthesis of L5 on S1 (increases with flexion and does not change with extension). There is 5 mm retrolisthesis of L2 on L3 (which decreases with flexion and extension) and 5 mm retrolisthesis of L1 on L2 (which does not change with flexion and extension). No acute fracture. There are multilevel degenerative changes of the lumbar spine with multilevel disc space narrowing, vertebral body osteophytes and facet hypertrophic changes. There are advanced calcifications of the abdominal aorta. There are subcentimeter phleboliths in the pelvis. Procedure Note Emily Quiñones MD - 04/28/2024 EXAM: XR LUMBAR SPINE 4+ VW STUDY DATE: 04/27/2024 4:33 PM CLINICAL INDICATION: Spondylolisthesis of lumbosacral region COMPARISON: None PROCEDURE: AP, lateral flexion, lateral extension and lateral views of the lumbar spine with lateral coned-down view of lumbosacral junction are obtained. FINDINGS: There is left curvature of the lumbar spine, centered at L2-L3. There is osteopenia. There is 9 mm grade 1 anterolisthesis of L4 on L5 (which increases with flexion and does not change with extension) and 4 mm grade 1 anterolisthesis of L5 on S1 (increases with flexion and does not change with extension). There is 5 mm retrolisthesis of L2 on L3 (which decreases with flexion and extension) and 5 mm retrolisthesis of L1 on L2 (which does not change with flexion and extension). No acute fracture. There are multilevel degenerative changes of the lumbar spine with multilevel disc space narrowing, vertebral body osteophytes and facet hypertrophic changes. There are advanced calcifications of the abdominal aorta. There are subcentimeter phleboliths in the pelvis. IMPRESSION: Multilevel degenerative changes of the lumbar spine. us Velasquez Traylor MD DIAGNOSTIC IMAGING ORDERABLES F inal Result from Last 3 Months Insurance MEDICARE PART A AND B [facility]
--- OUTSIDE RECORDS SUMMARY | 2024-04-29 00:51 | XMS_ITS ---
Author Organization [facility] Address [address] [place] [address] Care Team Providers Care Agricultural Adviser Name Role Phone Prince Bailon MD Primary Care Provider [phone] Active Problems Problem Noted Date Diagnosed Date [...] control. Assessment & Plan (04/08/2023 9:29 AM PRODUCT DEVELOPMENT ASSISTANT): Continue with aspirin and carvedilol. Assessment & Plan (10/01/2022 12:40 PM CDT): Continue with carvedilol. Assessment & Plan (05/23/2022 4:58 PM CDT): Incidental finding on chest CT scan. Managed with BP and lipid control. Pure hypercholesterolemia 05/23/2022 Assessment & Plan (03/16/2024 8:41 PM PRODUCT DEVELOPMENT ASSISTANT): Target LDL less than 100. Continue current diet and atorvastatin Assessment & Plan (10/15/2023 9:25 PM CDT): Target LDL less than 70. Continue current diet and atorvastatin. Check CMP and FLP. Assessment & Plan (08/09/2023 4:22 PM CDT): Target LDL less than 100. Continue current diet and atorvastatin. Assessment & Plan (04/08/2023 9:29 AM PRODUCT DEVELOPMENT ASSISTANT): Target LDL less than 70. Continue current [...] (11/30/2019): Added automatically from request for surgery [id number] Assessment & Plan (03/16/2024 8:41 PM PRODUCT DEVELOPMENT ASSISTANT): Prostatectomy in 2019. Followed by serial PSAs. Assessment & Plan (04/08/2023 9:30 AM PRODUCT DEVELOPMENT ASSISTANT): Prostatectomy in 2019. Followed by serial PSAs. Assessment & Plan (10/01/2022 12:40 PM CDT): Status post surgical resection. Continue follow-up with urology. Assessment & Plan (04/03/2022 5:51 PM PRODUCT DEVELOPMENT ASSISTANT): Status post prostatectomy in 2019 Assessment & [...] temazepam. Assessment & Plan (04/08/2023 9:31 AM PRODUCT DEVELOPMENT ASSISTANT): Treated with temazepam for years. Assessment & Plan (04/03/2022 5:51 PM PRODUCT DEVELOPMENT ASSISTANT): Has been on chronic temazepam for several years. Assessment & Plan (09/18/2021 1:45 PM CDT): On chronic temazepam. Atopic rhinitis 08/09/2013 Overview (05/30/2016): Allergic rhinitis Left ventricular hypertrophy 08/09/2013 Overview (05/30/2016): LVH - Left ventricular hypertrophy Essential hypertension 08/09/2013 Overview (05/30/2016): Essential hypertension Assessment & Plan (03/16/2024 8:40 PM PRODUCT DEVELOPMENT ASSISTANT): Target BP less than 130/80. Continue current diet, amlodipine, losartan and carvedilol. Assessment & Plan (10/15/2023 9:25 PM CDT): Target BP less than 130/80. Continue current diet, amlodipine, losartan and carvedilol. Check CBC and CMP. Assessment & Plan (08/09/2023 4:21 PM CDT): Target BP less than 130/80. Continue current diet, amlodipine, carvedilol and losartan. Assessment & Plan (04/08/2023 9:30 AM PRODUCT DEVELOPMENT ASSISTANT): Target BP less than 130/80. Continue current diet, amlodipine, carvedilol and losartan. Ambulatory BP machine correlating well with in office sphygmomanometer. Assessment & Plan (01/09/2023 12:30 PM PRODUCT DEVELOPMENT ASSISTANT): Uncontrolled hypertension. Asked patient to continue ambulatory [...] BP Assessment & Plan (04/03/2022 5:50 PM PRODUCT DEVELOPMENT ASSISTANT): Target BP less than 130/80. Continue current [...] obstruction Assessment & Plan (03/16/2024 8:41 PM PRODUCT DEVELOPMENT ASSISTANT): Managing without medications. Assessment & Plan (04/08/2023 9:30 AM PRODUCT DEVELOPMENT ASSISTANT): Managing without medications. Assessment & Plan (09/18/2021 1:45 PM CDT): Managed by urology. History of nonmelanoma skin cancer 06/01/2013 Obstructive sleep apnea syndrome 01/20/2013 Assessment & Plan (10/15/2023 9:25 PM CDT): Continue CPAP; using nightly benefit. Assessment & Plan (04/08/2023 9:30 AM PRODUCT DEVELOPMENT ASSISTANT): Using CPAP nightly with benefit. Assessment & Plan (10/01/2022 12:41 PM CDT): Using CPAP nightly with benefit. Assessment & Plan (09/18/2021 1:44 PM CDT): Using CPAP nightly with benefit. Heart murmur 01/20/2013 Current Treatment and Therapy Plans No current plan information found. Past Treatment and Therapy Plans No past plan information found. Lifetime Dose Tracking * Chemical Lifetime Dose Automatic Entry Manual Entr y Fluoro Time 1.2 minutes 1.2 minutes 0 minutes Air kerma at the reference point (Ka,r) 16.39 mGy 1 6.39 mGy 0 mGy DLP 321 mGycm 321 mGycm 0 mGycm Resolved Problems Problem Noted Date Diagnosed Date Resolved Date Benign hypertension 03/29/2015 09/06/19 17 Overview (05/30/2016): Benign hypertension Skin neoplasm 10/21/2014 10/10/2017 Hypertension 09/16/2013 10/10/2017 Shortness of breath 01/20/2013 10/11/19 18
[2024-04-29 09:40] VITALS: BP 156/73; PULSE 57; RESP 20; TEMP 36.6; O2SAT 99
[2024-04-29] MEDS: LACTATED RINGERS 1,000 ML 150 ML IV CONT (09:42)
--- NOTE | 2024-04-29 10:00 | P.PNAN_ITS ---
Anes - Initial Pre Proc Eval Procedure: Operation Date: 04/29/24 11:00 Proposed Procedures p Colonoscopy - Ruddy Peñaloza MD Date/Time: 04/29/24 10:00 Surgeon: Ruddy Peñaloza MD Pre Op Diagnosis: Personal hx of colon polyps Patient Data Age: 74 Gender: M Height: 1.7 m Weight: 80.7 kg Last Vital Signs Temp 36.6 C 04/29/24 09:40 Pulse 57 L 04/29/24 09:40 Resp 20 04/29/24 09:40 BP 156/73 H 04/29/24 09:40 Pulse Ox 99 04/29/24 09:40 O2 Del Method Room Air 04/29/24 09:40 Allergies Allergy/AdvReac Type Severity Reaction Status Date / Time lisinopril Allergy Cough Verified 04/29/24 09:35 Home Medications ?Medication ?Instructions ?Recorded ?Confirmed ?Type amlodipine 5 mg tablet 5 mg PO DAILY 04/21/24 04/29/24 History atorvastatin 10 mg tablet 10 mg PO QPM 04/21/24 04/29/24 History carvedilol 12.5 mg tablet 12.5 mg PO Q12H 04/21/24 04/29/24 History losartan 100 mg tablet 100 mg PO .dialy 04/21/24 04/21/24 History meloxicam 15 mg tablet 15 mg PO DAILY 04/21/24 04/29/24 History temazepam 15 mg capsule 15 mg PO DAILY 04/21/24 04/29/24 History Patient hx anesthesia problems: none Family hx anesthesia problems: none Results Review: All pre-operative results and documents have been reviewed as part of the pre- operative evaluation. [facility] Past Medical History Medical History (Updated 04/29/24 @ 10:02 by Tad Harvey MD) Prostate CA HTN (hypertension) Surgical History Surgical History (Updated 04/29/24 @ 10:03 by Tad Harvey MD) H/O colonoscopy H/O prostatectomy Social History Social History Smoking status: Never smoker Alcohol intake: never Substance use type: does not use Living arrangements: with family Spiritual care concerns: No Anes - Eval Final PreProcedure Day of Procedure 04/29/24 10:00 Patient weight: overweight Heart: regular rate and rhythm Lungs: clear to auscultation Airway: Mallampati scale class II Neurological: alert and oriented Last oral intake: >/= 8 hours ASA classification: II Emergent: no Anesthetic plan: proceed Anesthesia type and monitoring: general GIVS and standard monitoring Results Review: All pre-operative results and documents have been reviewed as part of the pre- operative evaluation. Informed Consent: The patient's anesthetic plan and its attendant risks and benefits were discussed with the patient/family/POA. Questions were solicited and answers provided to the satisfaction of the patient/family/POA.
--- NOTE | 2024-04-29 10:18 | PM.HPGS ---
History of Present Illness History of Present Illness Consent: Risks, benefits, and alternatives have been discussed and questions answered. Patient agrees to proceed with procedure. Chief complaint: Personal hx of colon polyps Narrative: Darren Gaitan is a 74 year old male with colon polyp 7 years ago Review of Systems Review of Systems: All systems reviewed & are unremarkable except as noted in HPI and below PMFSH Past Medical History Medical History (Updated 04/29/24 @ 10:18 by Ruddy Peñaloza MD) Colon polyp Prostate CA HTN (hypertension) Surgical History Surgical History (Updated 04/29/24 @ 10:03 by Tad Harvey MD) H/O colonoscopy H/O prostatectomy Social History Social History Smoking status: Never smoker Alcohol intake: never Substance use type: does not use Living arrangements: with family Spiritual care concerns: No Meds Home Medications and Allergies Home Medications ?Medication ?Instructions ?Recorded ?Confirmed ?Type amlodipine 5 mg tablet 5 mg PO DAILY 04/21/24 04/29/24 History atorvastatin 10 mg tablet 10 mg PO QPM 04/21/24 04/29/24 History carvedilol 12.5 mg tablet 12.5 mg PO Q12H 04/21/24 04/29/24 History losartan 100 mg tablet 100 mg PO .dialy 04/21/24 04/21/24 History meloxicam 15 mg tablet 15 mg PO DAILY 04/21/24 04/29/24 History temazepam 15 mg capsule 15 mg PO DAILY 04/21/24 04/29/24 History Allergies Allergy/AdvReac Type Severity Reaction Status Date / Time lisinopril Allergy Cough Verified 04/29/24 09:35 Vital Signs Vital Signs - 24 hr 04/29/24 09:40 Temperature 98 F Pulse Rate 57 L Respiratory Rate 20 Blood Pressure 156/73 H Pulse Oximetry 99 Oxygen Delivery Room Air Exam Const: General: comfortable and no acute distress HENMT: Face/Nose/Sinus: Normal nares present Eyes: General: appearance normal, both eyes and all related structures Neck: Neck: no JVD Resp: Auscultation: clear to auscultation bilaterally Cardio: Rate: regular rate Rhythm: regular rhythm GI: Inspection: non-distended GI Palp: Yes Soft to palpation Skin: General skin exam: normal color Neuro: Speech: normal speech Extrem: General: normal to inspection Psych: Mental Status: mental status grossly normal Assessment and Plan Assessment and plan (1) Colon polyp: Code(s): K63.5 - Polyp of colon Status: Acute Assessment and Plan: colonoscopy
[2024-04-29 10:32] VITALS: BP 108/46; PULSE 57; RESP 23; O2SAT 99
[2024-04-29 10:42] VITALS: BP 122/55; PULSE 64; RESP 23; O2SAT 100
[2024-04-29 10:52] VITALS: BP 129/57; PULSE 65; RESP 18; O2SAT 100
== END 2024-04-29 10:57 | disposition home or self-care (01) ==
PROVIDERS: Visit Provider Internal Medicine Gastroenterology
PROC: 0DJD8ZZ Inspection of Lower Intestinal Tract, Via Natural or Artificial Opening Endoscopic (ICD-10-PCS; CPT 45378; principal; 2024-04-29 11:00)
DX: Z12.11 Encounter for screening for malignant neoplasm of colon (principal); K63.5 Polyp of colon
CPT/HCPCS: 45385; 88305; J2704; J7120